=== PATIENT | female | born 2000 ===

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

== ENCOUNTER 2018-03-28 15:17 | Emergency (ER) | payer SELFPAY ==
[2018-03-28 15:32] VITALS: RESP 18
--- NOTE | 2018-03-28 16:05 | ED PDOC ---
HPI: CCC, URI, Sore Throat Time Seen by Provider: 03/28/18 15:36 Chief Complaint (Nursing): Flu-like Symptoms Chief Complaint (Provider): Cough, congestion History Per: Patient History/Exam Limitations: no limitations Have you had recent travel within the past 21 days to any of the following countries: [place], [place], [place] or [place]?: No Onset/Duration Of Symptoms: Days (2) Current Symptoms Are (Timing): Still Present Location Of Pain: Diffuse Myalgias Sick Contacts (Context): None Associated Symptoms: Fever (tactile), Cough, Myalgias, Nasal Congestion. denies : Sore Throat, Vomiting, Diarrhea Ear Symptoms: Bilateral: None Additional Complaint(s): 17y/o female with no past medical history, presents to ED with complaints of cough, nasal congestion, body aches, and bilateral eye irritation for the past day. She also reports a tactile fever as well and states she initially thought it was allergies, but thought her symptoms would improve by now. She states she took Mucinex, last dose 10am today with minimal relief. She denies any ear pain , headache, urinary symptoms, chest pain, shortness of breath, N/V/D, and abdominal pain; also denies recent sick contacts or foreign travels. She has no other medical complaints at this time. PMD: None Past Medical History Reviewed: Historical Data, Nursing Documentation, Vital Signs Vital Signs: Last Vital Signs Temp 98 F 03/28/18 16:14 Pulse 81 03/28/18 16:14 Resp 18 03/28/18 16:14 BP 110/61 03/28/18 16:14 Pulse Ox 100 03/28/18 16:14 - Medical History PMH: No Chronic Diseases Other PMH: seasonal allergies - Surgical History Surgical History: No Surg Hx - Family History Family History: States: No Known Family Hx, Unknown Family Hx - Social History Current smoker - smoking cessation education provided: No Alcohol: None Drugs: Denies - Home Medications Home Medications: Ambulatory Orders Medication Instructions Recorded Amoxicillin/Clavulanate [Augmentin 1 tab PO BID #14 tab 05/24/17 875 MG-125 MG] Ibuprofen [Motrin] 600 mg PO Q6 PRN #15 tab 05/24/17 Clindamycin [Cleocin] 1 tab PO QID #40 cap 09/03/17 Cetirizine HCl [Zyrtec] 10 mg PO DAILY #20 capsule 03/28/18 Promethazine/Dextromethorphan 5 ml PO Q6 PRN #150 ml 03/28/18 [Promethazine-Dm Syrup] - Allergies Allergies/Adverse Reactions: Allergies Allergy/AdvReac Type Severity Reaction Status Date / Time No Known Allergies Allergy Verified 05/24/17 23:44 Review of Systems ROS Statement: Except As Marked, All Systems Reviewed And Found Negative Constitutional: Positive for: Fever (tactile), Malaise (generalized malaise) ENT: Positive for: Nose Congestion, Throat Pain (throat irritation). Negative for: Ear Pain Cardiovascular: Negative for: Chest Pain Respiratory: Positive for: Cough. Negative for: Shortness of Breath Gastrointestinal: Negative for: Abdominal Pain Physical Exam - Reviewed Nursing Documentation Reviewed: Yes Vital Signs Reviewed: Yes - Physical Exam Comments: GENERAL APPEARANCE: Patient is awake, alert, oriented x 3, in no acute distress. Nontoxic appearing. SKIN: Warm, dry; (-) cyanosis. EYES: (-) conjunctival pallor (-) conjunctival injection (-) mucus discharge (- ) chemosis (-) crusting (-) mucus discharge. ENMT: Mucous membranes moist. Airway patent: (-) stridor. Pharynx: (-) swelling, (-) erythema, (-) exudate. Uvula midline. TMs: (-) erythema (-) bulging. (-) nasal flaring (-) purulent nasal drainage (-) sinus tenderness. NECK: Supple, FROM (-) tenderness, (-) stiffness, (-) lymphadenopathy. CHEST AND RESPIRATORY: (-) rhonchi, (-) rales, (-) wheezes, (-) pleural rub; breath sounds equal bilaterally. Speaking in full sentences, respirations even and nonlabored. (-) accessory muscle use. HEART AND CARDIOVASCULAR: (-) irregularity; (-) murmur, (-) gallop. ABDOMEN AND GI: Soft; (-) tenderness (-) guarding (-) distention (-) retractions. EXTREMITIES: (-) deformity; (-) edema. NEURO AND PSYCH: Mental status as above. Cranial nerves grossly intact; strength symmetric. Gait steady. Speech clear, (-) facial asymmetry. - ECG O2 Sat by Pulse Oximetry: 98 (RA) Pulse Ox Interpretation: Normal Medical Decision Making Medical Decision Making: Impression: Seasonal allergies, Cough Plan: -- Patient informed that based on her normal exam, her symptoms can be attributed to seasonal allergies. Patient advised to take allergy medications like Claritin or Zyrtec for relief of her symptoms. Patient expresses understanding and is agreeable with plan for discharge. Patient given instructions to follow up with PMD in 2-3 days as well. Patient states she fully agrees with and understands discharge instructions. States that she agrees with the plan and disposition. Verbalized and repeated discharge instructions and plan. I have given the patient opportunity to ask any additional questions. Scribe Attestation: Documented by Windy Hayes acting as a scribe for TEENA Song. Provider Attestation: All medical record entries made by the Scribe were at my direction and personally dictated by me. I have reviewed the chart and agree that the record accurately reflects my personal performance of the history, physical exam, medical decision making, and the department course for this patient. I have also personally directed, reviewed, and agree with the discharge instructions and disposition. Disposition - Clinical Impression Clinical Impression: Cough, Nasal congestion, Seasonal allergies - Patient ED Disposition Is Patient to be Admitted: No Counseled Patient/Family Regarding: Diagnosis, Need For Followup, Rx Given - Disposition Referrals: [facility] [Outside] Disposition: Routine/Home Disposition Time: 16:00 Condition: STABLE Additional Instructions: RETURN TO ED WITH ANY NEW OR WORSENING SYMPTOMS. Prescriptions: Cetirizine HCl [Zyrtec] 10 mg PO DAILY #20 capsule Promethazine/Dextromethorphan [Promethazine-Dm Syrup] 5 ml PO Q6 PRN #150 ml PRN Reason: Cough Instructions: Cough in Adults, Seasonal Allergies (DC) Forms: [employer] (Citizen Of [place]) Print Language: SERBIAN - POA Present On Arrival: None
[2018-03-28 16:15] VITALS: BP 110/61; PULSE 81; TEMP 98
[2018-03-31 01:31] VITALS: O2SAT 98
== END 2018-03-28 16:13 | disposition home or self-care (01) ==
LOC: H.ER 15:17
DX: R05 Cough (principal); R09.81 Nasal congestion; J30.2 Other seasonal allergic rhinitis